=== PATIENT | female | born 1950 | race Caucasian/White ===

== ENCOUNTER → 2017-08-24 | Outpatient (CLI) | payer OTHER ==
[~2017-08-24] MED LIST: IBUP-2070 PO; NAPR-1023 PO; XALA2.5OS OU; [UNRECOGNIZED DRUG - OTHER] PO
== END | disposition home or self-care (01) ==
LOC: RAH 13:04
PROVIDERS: ATTEND Family Medicine
DX: M79.661 Pain in right lower leg (principal)
CPT/HCPCS: 93971

== ENCOUNTER → 2018-06-23 | Outpatient (CLI) | payer OTHER | END | disposition home or self-care (01) | LOC: RAH 07:53 | PROVIDERS: ATTEND Family Medicine | DX: Z12.31 Encounter for screening mammogram for malignant neoplasm of breast (principal) | CPT/HCPCS: 77067 ==

== ENCOUNTER → 2020-09-24 | Outpatient (CLI) | payer OTHER | END | disposition home or self-care (01) | LOC: RAH 11:14 | PROVIDERS: ATTEND Family Medicine | DX: Z12.31 Encounter for screening mammogram for malignant neoplasm of breast (principal); N64.89 Other specified disorders of breast | CPT/HCPCS: 77067 ==

== ENCOUNTER → 2021-10-28 | Outpatient (CLI) | payer OTHER | END | disposition home or self-care (01) | LOC: RAH 13:26 | PROVIDERS: ATTEND Family Medicine | DX: Z13.6 Encounter for screening for cardiovascular disorders (principal); K44.9 Diaphragmatic hernia without obstruction or gangrene | CPT/HCPCS: 75571 ==

== ENCOUNTER → 2022-06-10 | Outpatient (CLI) | payer OTHER | END | disposition home or self-care (01) | LOC: RAH 08:00 | PROVIDERS: ATTEND Family Medicine | DX: Z12.31 Encounter for screening mammogram for malignant neoplasm of breast (principal) | CPT/HCPCS: 77067 ==

== ENCOUNTER → 2022-06-30 | Outpatient (CLI) | payer OTHER | END | disposition home or self-care (01) | LOC: RAH 14:44 | PROVIDERS: ATTEND Family Medicine | DX: R05.2 Subacute cough (principal); I70.0 Atherosclerosis of aorta; M47.815 Spondylosis without myelopathy or radiculopathy, thoracolumbar region; Z98.890 Other specified postprocedural states | CPT/HCPCS: 71046 ==

== ENCOUNTER → 2022-12-18 | Outpatient (CLI) | payer OTHER | END | disposition home or self-care (01) | LOC: RAH 12:33 | PROVIDERS: ATTEND Family Medicine | DX: M47.812 Spondylosis without myelopathy or radiculopathy, cervical region (principal) | CPT/HCPCS: 72040 ==

== ENCOUNTER → 2022-12-29 | Outpatient (CLI) | payer OTHER | END | disposition home or self-care (01) | LOC: RAH 10:29 | PROVIDERS: ATTEND Family Medicine | DX: M19.032 Primary osteoarthritis, left wrist (principal); M25.532 Pain in left wrist | CPT/HCPCS: 73110 ==

== ENCOUNTER → 2023-11-25 | Outpatient (CLI) | payer OTHER ==
[~2023-11-25] MED LIST changes: +IOHEXOL 350 MG/ML 100ML INFUS..BTL IV ONE
== END | disposition home or self-care (01) ==
LOC: RAH 08:04
PROVIDERS: ATTEND Student in an Organized Health Care Education/Training Program
DX: I25.10 Atherosclerotic heart disease of native coronary artery without angina pectoris (principal); R07.9 Chest pain, unspecified; R06.09 Other forms of dyspnea; M47.815 Spondylosis without myelopathy or radiculopathy, thoracolumbar region
CPT/HCPCS: 75574; Q9967

== ENCOUNTER → 2023-12-04 | Outpatient (CLI) | payer OTHER ==
[~2023-12-04] MED LIST changes: -IOHEXOL 350 MG/ML 100ML INFUS..BTL IV ONE
== END | disposition home or self-care (01) ==
LOC: SHCH 07:39
PROVIDERS: ATTEND Student in an Organized Health Care Education/Training Program
DX: I08.3 Combined rheumatic disorders of mitral, aortic and tricuspid valves (principal); R07.9 Chest pain, unspecified
CPT/HCPCS: 93306

== ENCOUNTER 2024-01-20 07:43 | Day surgery (SDC) | payer OTHER ==
[~2024-01-20] VITALS: Ht 162.6 cm; Wt 93.9 kg
[2024-01-20] VITALS (9 sets, daily range): BP systolic 129–153; BP diastolic 77–87; PULSE 59–79; RESP 15–17; TEMP 97.6–97.9
[~2024-01-20 07:43] MED LIST changes: +AEC81 PO; +ASCO500C18 PO; +BIOT800T PO; +CHOL3000 PO; +CYAN-106 PO; +FOLI0.8C PO; -IBUP-2070 PO; -NAPR-1023 PO; +VITA1CAP8 PO; -XALA2.5OS OU; +ZINC10LO6 PO; +[UNRECOGNIZED DRUG - OTHER] PO; +[UNRECOGNIZED DRUG - OTHER] PO; -[UNRECOGNIZED DRUG - OTHER] PO
[2024-01-20] MEDS: 0.9%NACL 1000ML 1,000 ML IV ONE (09:06)
[2024-01-20] MEDS ORDERED: proPOFol 10 MG/ML 20ML VIAL IV ONE (09:56)
== END 2024-01-20 11:10 | disposition home or self-care (01) ==
LOC: ENDO 07:43 → DAH 07:43 → ENDO 11:10
PROVIDERS: ATTEND Internal Medicine Gastroenterology
DX: R13.12 Dysphagia, oropharyngeal phase (principal); K29.50 Unspecified chronic gastritis without bleeding; K21.9 Gastro-esophageal reflux disease without esophagitis; K44.9 Diaphragmatic hernia without obstruction or gangrene; E66.9 Obesity, unspecified; Z88.5 Allergy status to narcotic agent; Z90.710 Acquired absence of both cervix and uterus; Z68.35 Body mass index [BMI] 35.0-35.9, adult; Z86.010 Personal history of colon polyps; Z98.890 Other specified postprocedural states; Z79.82 Long term (current) use of aspirin; Z79.899 Other long term (current) drug therapy
CPT/HCPCS: 43239; J2704; J7030; A4620; A7002; J3490

== ENCOUNTER → 2024-02-03 | Outpatient (CLI) | payer OTHER | END | disposition home or self-care (01) | LOC: RAH 12:38 | PROVIDERS: ATTEND Internal Medicine Gastroenterology | DX: R13.12 Dysphagia, oropharyngeal phase (principal) | CPT/HCPCS: 74230; 92611 ==

== ENCOUNTER 2024-07-31 10:32 | Emergency (ER) | payer OTHER ==
[~2024-07-31] VITALS: Ht 162.6 cm; Wt 91.6 kg
[2024-07-31] MEDS: PANTOPrazole 40 MG/VIAL IVP ONE (10:57)
[2024-07-31] MEDS: PANTOPrazole 40 MG/VIAL ONE (10:57)
[2024-07-31] MEDS: LACTATED RINGERS 1000ML 1,000 ML IV ONE (10:57)
--- NOTE | 2024-07-31 11:01 | NUR ---
MADE AWARE OF [facility] ORDER. STATES "I JUST WENT BEFORE COMING HERE."
--- NOTE | 2024-07-31 11:05 | ERN ---
General Chief Complaint: Shortness of Breath Stated Complaint: SOB Time Seen by MD: 10:34 Source: patient, family History of Present Illness Initial Comments PATIENT IS A 74-YEAR-OLD FEMALE COMING IN DUE TO MOMENTARILY VISION CHANGES WHICH LED HER TO HAVE AN ANXIOUSNESS ATTACK. UPON EVALUATION IN TRIAGE PATIENT STATES HE FEELS BETTER BUT IS HERE FOR FURTHER EVALUATION. NO FEVER OR CHILLS NO NAUSEA OR VOMITING. Allergies: Coded Allergies: ciprofloxacin (Unverified Allergy, Unknown, numbness to tongue, 01/19/24) codeine (Unverified Allergy, Unknown, 07/17/15) morphine (Unverified Allergy, Unknown, 07/17/15) sulfamethoxazole (Unverified Allergy, Unknown, stiff neck, 01/19/24) trimethoprim (Unverified Allergy, Unknown, stiff neck, 01/19/24) Home Meds Reported Medications [illumomeues] No Conflict Check, 1 TAB PO DAILY 01/19/24 [agilese] No Conflict Check, 1 TAB PO DAILY 01/19/24 Aspirin (ASPIRIN 81 MG ECTAB) 81 Mg Ectab, 81 MG PO DAILY, TAB.EC 01/19/24 Biotin (Biotin) 800 Mcg Tablet, 800 MCG PO DAILY, TAB 01/19/24 Zinc Gluconate (Zinc) 10 Mg Lozenge, 10 MG PO DAILY, JAMES 01/19/24 Ascorbic Acid (Vitamin C) 500 Mg Capsule, 500 MG PO DAILY, CAP 01/19/24 Vit B Comp/Folic/Choline/Inosi (Super B-50 Complex Capsule) 400 Mcg-20 Mg-50 Mg Capsule, 1 EACH PO DAILY, CAP 01/19/24 Cholecalciferol (Vitamin D3) (Vitamin D3) 75 Mcg (3000 Unit) Tablet, 75 MCG PO DAILY, TAB 01/19/24 Cyanocobalamin (Vitamin B-12) (Vitamin B12) 1,000 Mcg Tablet, 1000 MCG PO DAILY, TAB 01/19/24 Folic Acid (Folic Acid) 0.8 Mg Capsule, 0.8 MG PO AM, CAP 01/19/24 Past Medical History Past Medical History: High Cholesterol Past Surgical History: Other Surgical History Other: CERVICAL SX, LOWER BACK SX ROS Dictation CONSTITUTIONAL: NO CHILLS, NO FEVER, NO WEAKNESS, NO DIAPHORESIS, NO MALAISE. HEAD/FACE: NO SIGNS OF TRAUMA. EENT: NO EYE PAIN, NO BLURRED VISION, NO TEARING, NO DOUBLE VISION, NO EAR PAIN, NO EAR DISCHARGE, NO NOSE PAIN, NO NASAL CONGESTION, NO THROAT PAIN, NO THROAT SWELLING, NO MOUTH PAIN. RESPIRATORY: NO COUGH, NO ORTHOPNEA, NO SOB, NO STRIDOR, NO WHEEZING. CARDIOVASCULAR: NO CHEST PAIN, NO EDEMA, NO PALPITATIONS, NO SYNCOPE. GASTROINTESTINAL/ABDOMINAL: NO ABDOMINAL PAIN, NO CONSTIPATION, NO DIARRHEA, NO NAUSEA, NO VOMITING. GENITOURINARY: NO ABNORMAL DISCHARGE, NO DYSURIA, NO FREQUENT URINATION, NO HEMATURIA. NO COMPLAINTS OF PAIN IN THE GENITALS. MUSCULOSKELETAL: NO BACK PAIN, NO GOUT, NO JOINT PAIN, NO JOINT SWELLING, NO MUSCLE PAIN, NO MUSCLE STIFFNESS, NO NECK PAIN. INTEGUMENTARY: NO CHANGE IN COLOR, NO CHANGE IN HAIR/NAILS, NO DRYNESS, NO LESION, NO LUMPS, NO RASH. NEUROLOGICAL/PSYCH: NO ANXIETY, NOT DEPRESSED, NO EMOTIONAL PROBLEM, NO HEADACHE, NO NUMBNESS, NO PRE-EXISTING DEFICIT, NO HISTORY OF SEIZURES, NO TREMORS, NO WEAKNESS. HEMATOLOGIC/LYMPHATIC: NOT ANEMIC, NO HISTORY OF BLOOD CLOTS, NO APPARENT BLEEDING, NO BRUISING, GLANDS NOT SWOLLEN. ALL SYSTEMS NEGATIVE, EXCEPT NOTED. Physical Exam Physical Exam Dictation VITAL SIGNS: REVIEWED. GENERAL APPEARANCE: ALERT, ORIENTED X3, NO ACUTE DISTRESS, OBESE. HEAD AND FACE: NON-TRAUMATIC. EYES: PERRL, PINK CONJUNCTIVAS, EYELID NO TRAUMA, ANTERIOR CHAMBER CLEAR. EARS: PINNAS INTACT AND NO SIGNS OF TRAUMA OR ERYTHEMA. EAR CANALS CLEAR AND NO DISCHARGE. TMS NO ERYTHEMA. NOSE: NO DISCHARGE, NO BLEEDING. OROPHARYNX: MOUTH NORMAL, TEETH NO CARIES, TONGUE PINK. PHARYNX CLEAR, NO ERYTHEMA. TONSILS NO EXUDATES, NO ABSCESSES NOTED. MUCOUS MEMBRANE MOIST. NECK: SUPPLE, NON-TENDER, NO THYROMEGALY, NO MASSES, NO JVD, NO BRUITS. BREAST: DEFERRED. CHEST: NO TENDERNESS, NO CREPITUS, NO PARADOXICAL MOVEMENT, NO RETRACTIONS. LUNGS: CLEAR, WELL-VENTILATED, SYMMETRIC, NO RALES, NO WHEEZING, NO RHONCHI, NO STRIDOR, GOOD BREATH SOUNDS BILATERALLY. HEART: REGULAR RATE, REGULAR RHYTHM, NO MURMUR, NO GALLOPS. VASCULAR: NO PERIPHERAL EDEMA. ABDOMEN: SOFT, POSITIVE BOWEL SOUNDS, NONDISTENDED, NO GUARDING, NONTENDER, NO REBOUND, NO MASSES NO HEPATOMEGALY, NO SPLENOMEGALY, NO PONCE'S SIGN, NO HERNIAS. RECTAL: DEFERRED. GENITAL: DEFERRED. NEUROLOGICAL: NORMAL SPEECH, GROSS MOTOR FUNCTION INTACT, GROSS SENSORY FUNCTION INTACT. MUSCULOSKELETAL: NECK NONTENDER, FULL RANGE OF MOTION, BACK NONTENDER, FULL RANGE OF MOTION. EXTREMITIES: NONTENDER, FULL RANGE OF MOTION. SKIN: COLOR PINK, DRY, NO TURGOR, NO RASH, NO LACERATIONS, NO ABRASIONS, NO CONTUSIONS. LYMPHATICS: DEFERRED. Results Laboratory and Microbiology Lab and Micro Result Laboratory Tests Test 07/31/24 10:57 07/31/24 11:35 White Blood Count 5.2 K/uL (4.8-10.8) Red Blood Count 4.00 MIL/uL (4.00-5.50) Hemoglobin 13.6 g/dL (12.0-16.0) Hematocrit 38.9 % (36-48) Mean Corpuscular Volume 97.3 fL (79-99) Mean Corpuscular Hemoglobin 34.0 pg (27.0-33.0) H Mean Corpuscular Hemoglobin Concent 35.0 g/dL (32.0-36.0) Red Cell Distribution Width 12.8 % (11.0-15.5) Platelet Count 304 K/uL (130-400) Mean Platelet Volume 9.5 fL (7.5-10.5) Immature Granulocyte % (Auto) 0.2 % (0-1) Neutrophils (%) (Auto) 45.8 % (40.0-77.0) Lymphocytes (%) (Auto) 38.5 % (21.0-51.0) Monocytes (%) (Auto) 9.1 % (3.0-13.0) Eosinophils (%) (Auto) 5.4 % (0.0-8.0) Basophils (%) (Auto) 1.0 % (0.0-5.0) Neutrophils # (Auto) 2.4 K/uL (1.8-7.7) Lymphocytes # (Auto) 2.0 K/uL (1.0-4.8) Monocytes # (Auto) 0.5 K/uL (0.1-1.0) Eosinophils # (Auto) 0.28 K/uL (0.00-0.70) Basophils # (Auto) 0.05 K/uL (0.00-0.20) Absolute Immature Granulocyte (auto 0.01 K/uL (0-1) Nucleated Red Blood Cells 0.0 % (0.0-0.19) Prothrombin Time 10.9 SEC (9.6-11.6) Prothromb Time International Ratio 1.03 (0.85-1.15) Activated Partial Thromboplast Time 28.2 SEC (26.3-35.5) Sodium Level 135 mmol/L (136-145) L Potassium Level 3.8 mmol/L (3.5-5.1) Chloride Level 100 mmol/L (101-111) L Carbon Dioxide Level 28 mmol/L (21-32) Blood Urea Nitrogen 17 mg/dL (7-18) Creatinine 0.8 mg/dL (0.5-1.0) Glomerular Filtration Rate Calc 77 mL/min (>90) Random Glucose 119 mg/dL (70-105) H Total Calcium 8.7 mg/dL (8.5-10.1) Magnesium Level 1.80 mg/dL (1.80-2.40) Total Creatine Kinase 54 U/L (21-232) Troponin I High Sensitivity < 4 ng/L (4-50) L B-Type Natriuretic Peptide 39 pg/mL (0-100) Urine Color LIGHT-YELLOW (YELLOW) Urine Appearance CLEAR (CLEAR) Urine pH 7.0 (5.0-8.0) Urine Specific Adrian 1.003 (1.001-1.031) Urine Protein NEGATIVE mg/dL (NEGATIVE) Urine Glucose (UA) NEGATIVE mg/dL (NEGATIVE) Urine Ketones NEGATIVE mg/dL (NEGATIVE) Urine Occult Blood NEGATIVE (NEGATIVE) Urine Nitrate NEGATIVE (NEGATIVE) Urine Bilirubin NEGATIVE mg/dL (NEGATIVE) Urine Urobilinogen 0.2 mg/dL (0.2-1.0) Urine Leukocyte Esterase 75 Deepak/uL (NEGATIVE) H Urine RBC 0-1 /HPF (0-1) Urine WBC 2-5 /HPF (0-1) H Urine Squamous Epithelial Cells FEW /HPF (0-2) Urine Bacteria RARE /HPF (None Seen) EKG/XRAY/US/CT/MRI EKG Comment 07/31/2024 TIME 10:58 A.M. VENTRICULAR RATE [address] WAVE ELEVATION OR DEPRESSION MDM MDM: DIFFERENTIAL DIAGNOSIS: UTI, DEHYDRATION, PATIENT IS A 74-YEAR-OLD FEMALE COMING IN TO BE EVALUATED FOR GENERALIZED BODY WEAKNESS. LABORATORY WORKUP POSITIVE FOR URINARY TRACT INFECTION AND MILD DEHYDRATION. PATIENT WAS HYDRATED WITH IV FLUIDS WE WILL BE DISCHARGED WITH ORAL ANTIBIOTICS. I DID ADVISED HER APPROPRIATE HYDRATION AND FOLLOW UP WITH PCP IN 1-2 DAYS. ED Course Orders Procedure Category Date Status Time Cbc With Differential LAB 07/31/24 Complete 10:45 Prothrombin Time With LAB 07/31/24 Complete INR 10:45 B-Type Natriuretic LAB 07/31/24 Complete Peptide 10:45 Chest 1vw RAD 07/31/24 Resulted 10:45 12 Lead Ekg Tracing- EKG 07/31/24 Logged Technical 10:45 Lactated Ringers PHA 07/31/24 Complete 1000ml (Lactated 11:00 Magnesium LAB 07/31/24 Complete 10:45 Creatine Kinase, Total LAB 07/31/24 Complete 10:45 Troponin I High LAB 07/31/24 Complete Sensitivity 10:45 Urinalysis Profile LAB 07/31/24 Complete 10:45 Partial LAB 07/31/24 Complete Thromboplastin Time 10:45 Basic Metabolic Panel LAB 07/31/24 Complete 10:45 Pantoprazole 40mg Inj PHA 07/31/24 Complete (Protonix 40mg Inj 11:00 Pantoprazole 40mg Inj PHA 07/31/24 Complete (Protonix 40mg Inj 10:51 Culture Urine GERALDO 07/31/24 In Process 12:03 Current Medications Medications (Trade) Dose Ordered Sig/Alona Route PRN Reason Start Time Stop Time Status Last Admin Dose Admin Lactated Ringer's 1,000 ml @ 0 mls/hr ONCE ONCE IV 07/31/24 11:00 07/31/24 11:01 DC 07/31/24 10:57 Pantoprazole Sodium (PROTonix 40MG INJ) 40 mg ONCE ONCE IVP 07/31/24 11:00 07/31/24 11:01 DC 07/31/24 10:57 Pantoprazole Sodium (PROTonix 40MG INJ) 40 mg STK-MED ONCE .ROUTE 07/31/24 10:51 07/31/24 10:56 DC Vital Signs Date Time Temp Pulse Resp B/P (MAP) Pulse Ox O2 Delivery O2 Flow Rate FiO2 07/31/24 11:00 98.1 72 18 132/70 96 Room Air* 0 21 07/31/24 10:44 98.1 82 18 159/85 97 Room Air 0 DX & DISP Disposition: Discharge Departure Impression: Primary Impression: UTI (urinary tract infection) Additional Impression: Dehydration Condition: Stable Scripts Cephalexin Monohydrate (Keflex) 500 Mg Cap 1 CAP PO BID for 10 Days, #20 CAP 0 Refills Prov: DAVIDSON VILLAFUERTE MD 07/31/24 Additional Instructions: FOLLOW-UP WITH PRIMARY CARE PROVIDER IN 1 TO 2 DAYS. TAKE MEDICATIONS DIRECTED HERE IN THE EMERGENCY ROOM. OKAY TO CONTINUE HOME MEDICATIONS UNLESS OTHERWISE DISCUSSED DURING YOUR VISIT IN THE EMERGENCY ROOM TODAY. RETURN TO YOUR NEAREST EMERGENCY ROOM IF SYMPTOMS WORSEN OR IF THERE IS NO IMPROVEMENT. CALL 911 IF YOU NEED IMMEDIATE ASSISTANCE. TAKE TYLENOL [id number] NEEDED AND IF NO CONTRAINDICATIONS ARE PRESENT. INCREASE ORAL HYDRATION. A WOUND CULTURE OR URINE CULTURE WAS ORDERED HERE IN THE EMERGENCY ROOM DEPARTMENT PLEASE FOLLOW-UP WITH PRIMARY CARE PROVIDER AND ADVISE THEM TO GET REPEAT PORTS FROM OUR FACILITY. IF YOU HAD ANY JESUS WRAP/SPLINTS THAT WERE APPLIED HERE, PLEASE DO NOT REMOVE THEM UNTIL YOU SEE YOUR PRIMARY CARE OR SPECIALTY. REFERRALS: Referrals: AUNDREA COLE MD (PCP) Time of Disposition: 12:39 DAVIDSON VILLAFUERTE MD Jul 31, 2024 11:05
[2024-07-31 11:09] LABS: BASOPHILS # (AUTO) 0.05 K/uL (0.00-0.20); EOSINOPHILS # (AUTO) 0.28 K/uL (0.00-0.70); EOSINOPHILS % (AUTO) 5.4 % (0.0-8.0); HEMATOCRIT 38.9 % (36-48); IMMATURE GRANULOCYTE ABSOLUTE 0.01 K/uL (0-1); LYMPHOCYTES % (AUTO) 38.5 % (21.0-51.0); MEAN CORPUSCULAR VOLUME 97.3 fL (79-99); MONOCYTES # (AUTO) 0.5 K/uL (0.1-1.0); MONOCYTES % (AUTO) 9.1 % (3.0-13.0); NEUTROPHILS # (AUTO) 2.4 K/uL (1.8-7.7); NEUTROPHILS % (AUTO) 45.8 % (40.0-77.0); PLATELET COUNT (AUTO) 304 K/uL (130-400); RED CELL DISTRIBUTION WIDTH 12.8 % (11.0-15.5); WHITE BLOOD COUNT (AUTO) 5.2 K/uL (4.8-10.8)
[2024-07-31 11:30] LABS: CREATININE 0.8 mg/dL (0.5-1.0); POTASSIUM 3.8 mmol/L (3.5-5.1)
[2024-07-31 11:33] LABS: B-TYPE NATRIURETIC PEPTIDE 39 pg/mL (0-100)
[2024-07-31 11:35] LABS: MAGNESIUM 1.8 mg/dL (1.80-2.40)
[2024-07-31 11:36] LABS: INR 1.03 (0.85-1.15); PROTHROMBIN TIME 10.9 SEC (9.6-11.6)
[2024-07-31 11:37] LABS: PARTIAL THROMBOPLASTIN TIME 28.2 SEC (26.3-35.5)
--- NOTE | 2024-07-31 11:39 | HMCIMG ---
Exam Type: CHEST 1VW Clinical Information: SOB Comparison: None Findings: The lungs are clear of infiltrates. The heart is normal in size. The bony and soft tissue structures of the chest are unremarkable. Impression: Clear lungs.
[2024-07-31 11:57] LABS: APPEARANCE,URINE CLEAR (CLEAR); BILIRUBIN,URINE NEGATIVE (NEGATIVE); GLUCOSE, URINE (UA) NEGATIVE (NEGATIVE); KETONES,URINE NEGATIVE (NEGATIVE); LEUKOCYTE ESTERASE ,URINE 75 Leu/uL (NEGATIVE); NITRATE,URINE NEGATIVE (NEGATIVE); OCCULT BLOOD,URINE NEGATIVE (NEGATIVE); PROTEIN,URINE NEGATIVE (NEGATIVE); UROBILINOGEN,URINE 0.2 mg/dL (0.2-1.0)
[2024-07-31 12:02] LABS: ADD UA MICROSCOPIC YES; COLOR,URINE LIGHT-YELLOW (YELLOW)
[2024-07-31 12:05] LABS: BACTERIA,URINE RARE /HPF (None Seen); RBC,URINE 0-1 /HPF (0-1); SQUAMOUS EPITHELIAL CELL,UR FEW /HPF (0-2)
[2024-07-31] MEDS ORDERED: CEPH500B PO (12:39)
[2024-07-31 12:49] VITALS: BP 130/66; PULSE 61; RESP 18; TEMP 98.1; O2SAT 97
--- NOTE | 2024-07-31 13:34 | EKG ---
[facility] Test Date: 2024-07-31 Test Time: 10:58:58 Pat Name: DAT WOODS Department: ED Room: Gender: F Project Manager Senior: [id number] : 1950 Requested By: DAVIDSON VILLAFUERTE Order Number: [id number] Reading MD: Jasper Villaseñor Measurements Intervals [place] Rate: 73 P: 27 MO: 155 QRS: -12 QRSD: 82 T: -13 QT: 384 QTc: 422 Interpretive Statements Sinus rhythm Compared to ECG 07/18/2015 06:47:19 Left ventricular hypertrophy no longer present Electronically Signed On 07-31-2024 19:32:16 CDT by Jasper Villaseñor Please click the below link to view image of tracing.
== END 2024-07-31 12:58 | disposition home or self-care (01) ==
LOC: EDH 10:32
DX: N39.0 Urinary tract infection, site not specified (principal); E86.0 Dehydration; E78.00 Pure hypercholesterolemia, unspecified; Z79.82 Long term (current) use of aspirin; Z88.1 Allergy status to other antibiotic agents; Z88.2 Allergy status to sulfonamides; Z88.5 Allergy status to narcotic agent
CPT/HCPCS: 99285; 96374; 71045; 82550; 83735; 84484; 80048; 83880; 85025; 85610; 85730; 87086; 81001; 36415; 93005; J7120; J2470